=== PATIENT | male | born 1980 | race Caucasian/White ===

== ENCOUNTER → 2021-05-29 | Outpatient (CLI) | payer OTHER ==
--- NOTE | 2021-05-29 17:12 | RAD ---
US ABDOMEN OR LOWER BACK LIMITED History:Reason: UMBILICAL HERNIA / Spl. Instructions: / History: Comparison: None Technique: Sonographic examination of the umbilicus Findings: Small fat-containing umbilical hernia. Fascial defect measures 0.7 cm. Impression: 1. Small fat-containing umbilical hernia. Electronically signed by: Darrian Woo DO (05/29/2021 5:10 PM) [id number]
== END ==
LOC: US 09:58
PROVIDERS: ATTEND Physician Assistant
DX: K42.9 Umbilical hernia without obstruction or gangrene (principal)
CPT/HCPCS: 76705

== ENCOUNTER → 2021-08-09 | Day surgery (SDC) | payer OTHER ==
[~2021-08-09] MED LIST: ACETAMINOPHEN 500 MG TABLET PO ONE; BUPIVACAINE-EPI 0.25%-1:200000 MPF 30 ML VIAL. INJ ONE; BUPIVACAINE-EPI 0.25%-1:200000 MPF 30 ML VIAL. ONE; DEXAMETHASONE SOD PHOS 4 MG/ML VIAL. ONE; IV RINGERS SOLUTION,LACTATED 1,000 ML IV ONE; LIDOCAINE 2% PF 5 ML VIAL. ONE; MIDAZOLAM HCL PF 2 MG/2 ML VIAL. ONE; OXYC-325 PO; SUCCINYLCHOLINE 200 MG/10 ML VIAL. ONE; ceFAZolin SODIUM 1 GM VIAL ONE
--- NOTE | 2021-08-09 07:47 | PDOC1 ---
History of Present Illness Reason for Visit: Repair of umbilical hernia History of Present Illness 40-year-old male with complaints of a painful bulge at his umbilicus been present for a number years Chief Complaint: Pain his umbilicus Allergies: Coded Allergies: No Known Drug Allergies (Unverified , 08/09/21) Past Medical History Cardiac: No pertinent hx Pulmonary: No pertinent hx GI: No pertinent hx Heme/Onc: No pertinent hx Hepatobiliary: No pertinent hx Psych: No pertinent hx Musculoskeletal: No pertinent hx Rheumatologic: No pertinent hx Infectious disease: No pertinent hx ENT: No pertinent hx Renal/: No pertinent hx Endocrine: No pertinent hx Dermatology: No pertinent hx Past Surgical History: No pertinent history Family History: No pertinent hx Past Social History Smoke: No Alcohol: rare Drugs: None Lives: with Family Review of Systems Review Of Systems Fourteen system , review of systems has been reviewed. See HPI for pertinent pos itives and negative responses, other albarran all other systems are negative, non pertinent or non contributory Constitutional: No: Fever, Chills, Sweats, Weakness, Malaise, Other Eyes: No: Blurry vision, Decreased vision, Double vision, Dry eyes, Excessive tearing, Eye Pain, Itchy Eyes, Loss of vision, Photophobia, Scotomata, Uses contacts, Uses glasses, Other ENT: No: Ear pain, Ear discharge, Nose pain, Nose discharge, Nose congestion, Mouth pain, Mouth swelling, Throat pain, Throat swelling, Other Respiratory: No: Cough, Hemoptysis, Orthopnea, Pleuritic Pain, Shortness of breath, SOB with excertion, Sputum Changes, Stridor, Tachypnea, Wheezing, Other Cardiovascular: No: Chest Pain, Palpitations, Orthopnea, Paroxysmal Noc. Dyspnea, Edema, Lt Headedness, Other Gastrointestinal: YES: Abdominal Pain Genitourinary: No: Change in Menstrual Cycle, Dysmenorrhea, Dyspareunia, Dysuria, Flank Pain, Genital Discharge, Genital Ulcers, Henaturia, Incontinence, Irregular/heavy Menses, Nocturia, Pelvic Pain, Scrotal Mass/pain, Slowing Urinary Stream, Urinary Frequency/urgency, Vulvar/vaginal Symptoms, Other Musculoskeletal: No: Gait Disturbance, Joint Pain, Joint Stiffness, Joint Swelling, Muscle Pain, Muscular Weakness, Pain In:, Swelling In:, Other SKIN: No: Warm, Dry, No Rashes, Cool, Diaphoretic, Cyanotic, Rash, Other Neurological: No: Behavorial Changes, Bowel/Bladder ControlChng, Confusion, Dizziness, Gait Disturbance, Headaches, Impaired Coord/balance, Memory Loss, Numbness/Tingling, Seizures, Speech Problems, Tremors, Visual Changes, Weakness, Other Medications Current Medications Cefazolin Sodium 1 gm/Sodium Chloride 50 ml @ 100 mls/hr 1X ONCE IV ; Start 08/09/21 at 07:00; Stop 08/09/21 at 07:29; Status DC Cefazolin Sodium/ Dextrose 50 ml @ 100 mls/hr 1X ONCE IV ; Start 08/09/21 at 07:00; Stop 08/09/21 at 07:29; Status DC Acetaminophen (Tylenol) 1,000 mg 1X ONCE PO Last administered on 08/09/21at 07:42; Start 08/09/21 at 07:00; Stop 08/09/21 at 07:01; Status DC Succinylcholine Chloride (Anectine) 200 mg STK-MED ONCE .ROUTE ; Start 08/09/21 at 07:09; Stop 08/09/21 at 07:09; Status DC Fentanyl Citrate (Fentanyl 2ml Vial) 100 mcg STK-MED ONCE .ROUTE ; Start 08/09/21 at 07:10; Stop 08/09/21 at 07:10; Status DC Midazolam HCl (Versed) 2 mg STK-MED ONCE .ROUTE ; Start 08/09/21 at 07:10; Stop 08/09/21 at 07:10; Status DC Lidocaine HCl (Lidocaine Pf 2% Vial) 5 ml STK-MED ONCE .ROUTE ; Start 08/09/21 at 07:11; Stop 08/09/21 at 07:11; Status DC Dexamethasone Sodium Phosphate (Decadron) 4 mg STK-MED ONCE .ROUTE ; Start 08/09/21 at 07:11; Stop 08/09/21 at 07:11; Status DC Bupivacaine HCl/ Epinephrine Bitart (Sensorcaine-Epi 0.25%-1:[id number] Mpf) 30 ml STK-MED ONCE .ROUTE ; Start 08/09/21 at 07:11; Stop 08/09/21 at 07:12; Status DC Cefazolin Sodium (Ancef) 1 gm STK-MED ONCE .ROUTE ; Start 08/09/21 at 07:22; Stop 08/09/21 at 07:22; Status DC Exam Vital Signs Vital Signs Date Time Temp Pulse Resp B/P (MAP) Pulse Ox O2 Delivery O2 Flow Rate FiO2 08/09/21 07:13 97.8 59 16 137/75 (95) 98 Room Air General Appearance: Alert, Oriented X3, Cooperative, No acute distress HEENT: Atraumatic, PERRLA, EOMI Respiratory: Clear to auscultation, Normal air movement Heart: Regular rate, No murmurs Abdominal: Normal bowel sounds, Soft, Other (Small umbilical hernia tender to palpation no skin changes) Extremities: No edema Rectal Exam: Deferred, not indicated Skin: No significant lesion Neuro: Normal speech Psych/Mental Status: Mental status NL Assessment/Plan Assessment/Plan Umbilical hernia plan for repair COURSE Allergies Coded Allergies Type Severity Reaction Last Updated Verified No Known Drug Allergies 08/09/21 No Current Medications Medications (Trade) Dose Ordered Sig/Maia Route PRN Reason Start Time Stop Time Status Last Admin Dose Admin Cefazolin Sodium 1 gm/Sodium Chloride 50 ml @ 100 mls/hr 1X ONCE IV 08/09/21 07:00 08/09/21 07:29 DC Cefazolin Sodium/ Dextrose 50 ml @ 100 mls/hr 1X ONCE IV 08/09/21 07:00 08/09/21 07:29 DC Acetaminophen (Tylenol) 1,000 mg 1X ONCE PO 08/09/21 07:00 08/09/21 07:01 DC 08/09/21 07:42 Succinylcholine Chloride (Anectine) 200 mg STK-MED ONCE .ROUTE 08/09/21 07:09 08/09/21 07:09 DC Fentanyl Citrate (Fentanyl 2ml Vial) 100 mcg STK-MED ONCE .ROUTE 08/09/21 07:10 08/09/21 07:10 DC Midazolam HCl (Versed) 2 mg STK-MED ONCE .ROUTE 08/09/21 07:10 08/09/21 07:10 DC Lidocaine HCl (Lidocaine Pf 2% Vial) 5 ml STK-MED ONCE .ROUTE 08/09/21 07:11 08/09/21 07:11 DC Dexamethasone Sodium Phosphate (Decadron) 4 mg STK-MED ONCE .ROUTE 08/09/21 07:11 08/09/21 07:11 DC Bupivacaine HCl/ Epinephrine Bitart (Sensorcaine-Epi 0.25%-1:255408 Mpf) 30 ml STK-MED ONCE .ROUTE 08/09/21 07:11 08/09/21 07:12 DC Cefazolin Sodium (Ancef) 1 gm STK-MED ONCE .ROUTE 08/09/21 07:22 08/09/21 07:22 DC Orders Procedure Category Date Status Time Succinylcholine PHA 08/09/21 Complete (Anectine) 07:09 Fentanyl Pf (Fentanyl PHA 08/09/21 Complete 2ml Vial) 07:10 Midazolam Hcl Pf PHA 08/09/21 Complete (Versed) 07:10 Lidocaine 2% Pf Vial PHA 08/09/21 Complete (Lidocaine Pf 2% Vi 07:11 Dexamethasone Sod PHA 08/09/21 Complete Phos (Decadron) 07:11 Bupivac-Epi PHA 08/09/21 Complete 0.25%-1:[id number] Mpf 07:11 Cefazolin Sodium PHA 08/09/21 Complete (Ancef) 07:22 Vital Signs Date Time Temp Pulse Resp B/P (MAP) Pulse Ox O2 Delivery O2 Flow Rate FiO2 08/09/21 07:13 97.8 59 16 137/75 (95) 98 Room Air Justification of Admission: Justification of Admission: Justification of Admission Dx: N/A DAVID WHITAKER MD Aug 09, 2021 07:47
--- NOTE | 2021-08-09 08:22 | PDOC4 ---
Operative Report DATE August 092019 at 8:20 AM Preop Diagnosis Umbilical hernia Post-op Diagnosis Same Operation Performed Umbilical hernia repair Patient is a 41-year-old male with complaints of a painful bulge at his umbilicus. Procedure of umbilical hernia repair was explained to the patient detail risk benefits were also discussed including bleeding infection alternatives this procedure also discussed with patient who seemed to understand and gave a verbal written consent to have procedure performed. Patient was taken to the operating room placed in supine position IV sedation was initiated by anesthesia once patient was properly sedated area around the umbilicus was injected with quarter percent Marcaine with epinephrine. Incision was made just below the umbilicus with a 15 blade scalpel is carried down through the subcutaneous tissues electrocautery right hemostasis and the hernia sac and contents were excised with electrocautery. The hernia defect was then closed with a [id number] 0 Vicryl suture and the skin was reapproximated with 4-0 subcuticular Monocryl Mastisol Steri-Strips and island dressing were applied. Patient was awakened from his sedation taken to recovery in stable condition all sponge instrument needle counts listed as correct estimated blood loss 5 mL Surgeon Mamadou Anesthesiologist IV sedation ANESTHESIA PROPOSED: GENERAL Blood Loss 5 mL Specimen Hernia sac and contents Complications None DAVID WHITAKER MD Aug 09, 2021 08:22
--- NOTE | 2021-08-09 08:24 | DISCH ---
DISCHARGE INSTRUCTIONS-DC Condition on Discharge Condition on Discharge: Stable Activity after Discharge Activity Instructions for Disc: Avoid exertion Other activity instructions: No lifting more than 20 pounds for 2 weeks Diet after Discharge Diet after Discharge: Regular Wound/Incision Care Other wound/incision instructi: May shower in 24 hours Contacting the [facility] after DC Call your doctor for: If your condition worsens Follow-Up Follow up with: Dr. Whitaker in 2 weeks DAVID WHITAKER MD Aug 09, 2021 08:24
[2021-08-09 08:55] VITALS: BP 119/60
--- NOTE | 2021-08-11 17:07 | PATHOLOGY ---
[facility] Accession Number: [id number] . 01 Material submitted: . hernia - UMBILICAL HERNIA SACK AND CONTENTS . 01 Clinical history: . REPAIR OF UMB HERNIA . 02 Diagnosis: Segment of fibromembranous and fibroadipose tissue, umbilical hernia repair: - Hernia sac and contents showing focal congestion and recent hemorrhage. (JPM/db; 08/11/2021) LBQ 08/11/2021 1538 Local . 02 Electronically signed: . Darek Anaya MD, Pathologist NPI- [id number] . 01 Gross description: . Fixative: Formalin Labeled: Umbilical hernia sac and contents Specimen received: A single segment of bright yellow to pink-parra, fibroadipose tissue Dimensions: 3.7 x 2.2 x 1.5 cm Abnormalities: None identified Submitted representatively in cassette A1. ([facility]; 08/09/2021) NRI/NRI 08/09/2021 2155 Local . 02 Pathologist provided ICD-10: K44.9 . 02 CPT . 217056 Specimen Comment: A courtesy copy of this report has been sent to [phone] Specimen Comment: [id number] Specimen Comment: Report sent to / DR CARVAJAL Performed at: 01 [facility] [address], [place], [place] [id number] MD Jez Mario MD Phone: [phone] Performed at: 02 [facility] [address], [place] [id number] MD Darek Anaya MD Phone: [phone]
== END | disposition home or self-care (01) ==
LOC: SURG 06:53
PROVIDERS: ATTEND Surgery
DX: K42.9 Umbilical hernia without obstruction or gangrene (principal); Z79.899 Other long term (current) drug therapy
CPT/HCPCS: 49585; J1100; J2001; J2250; J3010; J3490; J7120; J0690; J0696